=== PATIENT | male | born 1945 | race Caucasian/White ===

== ENCOUNTER 2018-09-27 23:44 | Inpatient (IN) | payer MEDICARE, MEDICAID ==
[~2018-09-27] VITALS: Ht 172.7 cm; Wt 131.1 kg
[2018-09-28] MEDS ORDERED: [UNRECOGNIZED DRUG - OTHER] (00:03)
[2018-09-28] MEDS ORDERED: CLONIDINE HCL 0.1 MG (00:03)
[2018-09-28] MEDS ORDERED: NEURONTIN 300 MG (00:03)
[2018-09-28] MEDS ORDERED: PRAVASTATIN 40 MG (00:03)
[2018-09-28] MEDS ORDERED: NOVOLOG U INSULIN (00:03)
[2018-09-28] MEDS ORDERED: CARVEDILOL 12.5 MG (00:03)
[2018-09-28] MEDS ORDERED: FERROUS SULFATE (00:03)
[2018-09-28] MEDS ORDERED: DEXAMETHASONE 1 MG (00:03)
[2018-09-28] MEDS ORDERED: COZAAR 100 MG (00:03)
[2018-09-28] MEDS ORDERED: [UNRECOGNIZED DRUG - OTHER] (00:03)
[2018-09-28] MEDS ORDERED: PLAVIX 75 MG (00:03)
[2018-09-28] MEDS ORDERED: PANTOPRAZOLE 40 MG (00:03)
[2018-09-28] MEDS ORDERED: CLOTRIMAZOLE-BETAMETHASONE CRM (00:03)
[2018-09-28] MEDS ORDERED: OXYBUTYNIN CL ER 10 MG TABLET (00:03)
[2018-09-28] MEDS ORDERED: TERAZOSIN 10 MG (00:03)
[2018-09-28] MEDS ORDERED: FARXIGA 5 MG (00:03)
[2018-09-28] MEDS ORDERED: LIRAGLUTIDE (00:03)
[2018-09-28] MEDS ORDERED: FUROSEMIDE 20 MG (00:04)
[2018-09-28] MEDS ORDERED: [UNRECOGNIZED DRUG - OTHER] (00:04)
[2018-09-28] MEDS ORDERED: LOSARTAN POTASSIUM 100 MG TAB (00:04)
[2018-09-28] MEDS ORDERED: INSULIN GLARGINE (00:04)
--- NOTE | 2018-09-28 00:07 | NUR ---
Patient BIB [id number] via [employer]. AAOx4. Speech is clear, speaks in complete sentences. No neuro deficits noted. Patient came in with c/o episodal general weakness at [id number]. No respiratory distress noted. No cardiovascular distress noted, all pulses palpable. No GI/. Patient in bed at lowest position, side rails upx2, call light within reach. Fall precautions implemented per protocol.
[2018-09-28 00:50] LABS: *BILIRUBIN,URIN NEGATIVE (NEGATIVE); *BLOOD, URINE 3+ (NEGATIVE); *CLARITY,URINE CLOUDY (CLEAR); *COLOR,URINE AMBER (YELLOW); *KETONES,URINE NEGATIVE (NEGATIVE); *UROBILINOGEN,URINE 0.2 E.U./dl (NORMAL); LEUKOCYTE ESTERASE ,URINE 1+ (NEGATIVE); NITRITE, URINE NEGATIVE (NEGATIVE); PH,URINE 5.5 (5.0-8.0); UGLUCOSE NEGATIVE (NEGATIVE)
[2018-09-28 00:58] LABS: BACTERIA,URINE MANY /HPF (NONE SEEN); RBC,URINE TNTC /HPF (0-3); SQUAMOUS EPITHELIAL CELL,UR FEW /HPF (NONE SEEN); WBC,URINE TNTC /HPF (0-3)
[2018-09-28 01:06] LABS: BASOPHILS # (AUTO) 0.2 K/uL (0.0-8.0); BASOPHILS % (AUTO) 0.9 % (0.0-2.0); EOSINOPHILS % (AUTO) 0.2 % (0.0-7.0); HEMATOCRIT 36.4 % (36.7-47.1); HEMOGLOBIN 12.1 g/dL (12.5-16.3); LYMPHOCYTES # (AUTO) 1.3 K/uL (20.0-40.0); LYMPHOCYTES % (AUTO) 6.9 % (20.5-51.5); MEAN CORPUSCULAR HEMOGLOBIN 27.9 uug (23.8-33.4); MEAN CORPUSCULAR HGB CONC 33 g/dL (32.5-36.3); MEAN CORPUSCULAR VOLUME 83.7 fL (73.0-96.2); MONOCYTES # (AUTO) 1.8 K/uL (2.0-10.0); MONOCYTES % (AUTO) 9.8 % (0.0-11.0); NEUTROPHILS # (AUTO) 15.5 K/uL (1.8-8.9); NEUTROPHILS % (AUTO) 82.2 % (38.5-71.5); PLATELET COUNT (AUTO) 217 K/uL (152-348); RED BLOOD CELL COUNT(AUTO) 4.35 MIL/uL (4.06-5.63); WHITE BLOOD COUNT (AUTO) 18.9 K/uL (3.6-10.2)
[2018-09-28 01:17] LABS: CARBON DIOXIDE 25 mmol/L (21-32); CHLORIDE 98 mmol/L (98-107); CREATININE 2.3 mg/dL (0.6-1.3); GLUCOSE 111 mg/dL (74-106); POTASSIUM 4.5 mmol/L (3.5-5.1); UREA NITROGEN, BLOOD 32 mg/dL (7-18)
[2018-09-28 01:24] LABS: ALANINE AMINOTRANSFERASE 15 U/L (16-63); ALKALINE PHOSPHATASE 43 U/L (50-136); ASPARTATE AMINOTRANSFERASE 13 U/L (15-37); BILIRUBIN,DIRECT 0.3 mg/dL (0.0-0.2); TOTAL PROTEIN, SERUM 7.1 g/dL (6.4-8.2)
[2018-09-28] MEDS ORDERED: CEFTRIAXONE 2 G in IV DEXTROSE 5% 100 ML IV ONE (01:30)
[2018-09-28] MEDS ORDERED: CEFTRIAXONE 1 G VIAL ONE (01:35)
--- NOTE | 2018-09-28 03:05 | NUR ---
Called [facility] for panel call, Dr. Combs on the phone w/ Dr. Joseph, called for med/surg bed - pt. to go into room 318
--- NOTE | 2018-09-28 03:07 | NUR ---
Pt. to go in to room 302
--- NOTE | 2018-09-28 03:07 | NUR ---
Daughter - Jennifer left phone number to be called if needed [phone]
--- NOTE | 2018-09-28 03:11 | NUR ---
ERROR charting RHAND 20G for ROCEPHIN; CORRECTION = LHAND 20G IV for Rocephin
[2018-09-28 03:14] LABS: LYMPHOCYTES % (MANUAL) 3 % (20-40); MONOCYTES % (MANUAL) 9 % (2-10); NEUTROPHILS % (MANUAL) 85 % (42-75)
[2018-09-28] MEDS ORDERED: IV NORMAL SALINE 1000 ML BAG IV ONE (03:15)
[2018-09-28] MEDS ORDERED: MAGNESIUM HYDROXIDE 30 ML LIQUID UDC PO PRN (03:45)
[2018-09-28] MEDS ORDERED: HYDROCODONE/APAP 5-325MG TABLET PO PRN (03:45)
[2018-09-28] MEDS ORDERED: ONDANSETRON 4 MG/2 ML VIAL IV PRN (03:45)
[2018-09-28] MEDS ORDERED: Z GUARD REMEDY PASTE 57 GM TUBE TOP PRN (03:45)
[2018-09-28] MEDS ORDERED: ACETAMINOPHEN 325 MG TABLET PO PRN (03:45)
[2018-09-28 05:00] VITALS: BP 128/63
--- NOTE | 2018-09-28 05:05 | NUR ---
Patient transfered to [facility] in stable condition.
[2018-09-28] MEDS: IV NS 1000 ML 1,000 ML IV PRN ×2 (05:10→19:50)
--- NOTE | 2018-09-28 05:10 | NUR ---
SBAR RECEIVED FROM ER NURSE. PATIENT ALERT AND ORIENTED X4. FARSI SPEAKING PRIMARILY, BUT SPEAKS QATARI WELL. NO C/O PAIN OR SOB AT THIS TIME. AT BEDSIDE. SIDERAILS UPP BILATERALLY. WILL CONTINUE TO MONITOR.
--- NOTE | 2018-09-28 06:44 | NUR ---
PATIENT RESTING COMFORTABLY IN BED. NO C/O PAIN AT THIS TIME. UP TO BATHROOM WITH ASSISTANCE. WILL ENDORSE TO ONCOMING SHIFT ACCORDINGLY.
[2018-09-28 07:54] LABS: BASOPHILS # (AUTO) 0.1 K/uL (0.0-8.0); BASOPHILS % (AUTO) 0.5 % (0.0-2.0); EOSINOPHILS % (AUTO) 0.3 % (0.0-7.0); HEMOGLOBIN 11.9 g/dL (12.5-16.3); LYMPHOCYTES # (AUTO) 1.5 K/uL (20.0-40.0); LYMPHOCYTES % (AUTO) 8.7 % (20.5-51.5); MEAN CORPUSCULAR HEMOGLOBIN 28.5 uug (23.8-33.4); MEAN CORPUSCULAR HGB CONC 34 g/dL (32.5-36.3); MONOCYTES % (AUTO) 11.7 % (0.0-11.0); NEUTROPHILS # (AUTO) 13.5 K/uL (1.8-8.9); NEUTROPHILS % (AUTO) 78.8 % (38.5-71.5); PLATELET COUNT (AUTO) 207 K/uL (152-348); RED BLOOD CELL COUNT(AUTO) 4.16 MIL/uL (4.06-5.63); WHITE BLOOD COUNT (AUTO) 17.1 K/uL (3.6-10.2)
[2018-09-28 08:12] LABS: CARBON DIOXIDE 26 mmol/L (21-32); CHLORIDE 100 mmol/L (98-107); CHOLESTEROL 87 mg/dL (<200); CREATININE 2.1 mg/dL (0.6-1.3); GLUCOSE 118 mg/dL (74-106); HDL CHOLESTEROL 32 mg/dL (40-60); MAGNESIUM 2.2 mg/dL (1.8-2.4); PHOSPHOROUS 3.1 mg/dL (2.5-4.9); TRIGLYCERIDES 62 MG/DL (30-150); UREA NITROGEN, BLOOD 32 mg/dL (7-18)
[2018-09-28] MEDS ORDERED: DEXTROSE 50% 50 ML DISP.SYRIN IV PRN (09:00)
[2018-09-28] MEDS: BLOOD SUGAR DIAGNOSTIC 1 EACH STRIP VI SCH ×4 (09:00→21:07)
[2018-09-28] MEDS ORDERED: CARV6.25 PO (10:51)
[2018-09-28] MEDS ORDERED: CLON0.2T PO (10:52)
[2018-09-28] MEDS ORDERED: LOSA100T3 PO (10:53)
[2018-09-28] MEDS ORDERED: CLOT15CR4 TP (10:53)
[2018-09-28] MEDS ORDERED: FURO40TA5 PO (10:54)
[2018-09-28] MEDS ORDERED: FAMO20TA8 PO (10:55)
[2018-09-28] MEDS ORDERED: GABA-534 PO (10:55)
[2018-09-28] MEDS ORDERED: INSU100V11 (10:57)
[2018-09-28] MEDS ORDERED: CLOP75TA15 PO (10:58)
[2018-09-28] MEDS ORDERED: PRAV40TA3 PO (10:58)
[2018-09-28] MEDS ORDERED: TERA2CAP4 PO (10:59)
[2018-09-28] MEDS ORDERED: INSU300I SQ ×2 (11:00→11:01)
[2018-09-28] MEDS ORDERED: LIRA0.6P2 SQ (11:02)
[2018-09-28] MEDS: INSULIN REGULAR, HUMAN 300 UNIT/3 ML VIAL SQ PRN ×2 (11:09→16:10)
[2018-09-28 11:26] VITALS: BP 122/61
[2018-09-28 14:42] LABS: *BILIRUBIN,URIN NEGATIVE (NEGATIVE); *BLOOD, URINE 2+ (NEGATIVE); *COLOR,URINE YELLOW (YELLOW); *KETONES,URINE NEGATIVE (NEGATIVE); *UROBILINOGEN,URINE 0.2 E.U./dl (NORMAL); LEUKOCYTE ESTERASE ,URINE TRACE (NEGATIVE); NITRITE, URINE NEGATIVE (NEGATIVE); UGLUCOSE TRACE (NEGATIVE)
[2018-09-28 14:44] LABS: *CREATININE,URINE 82.7 mg/dL (30-125); *URINE TOTAL PROTEIN RANDOM 97.9 mg/dL (<150/24HR)
[2018-09-28 15:32] VITALS: BP 135/54
[2018-09-28 16:56] LABS: *CLARITY,URINE HAZY (CLEAR)
[2018-09-28 16:58] LABS: RBC,URINE 20-50 /HPF (0-3); WBC,URINE 20-50 /HPF (0-3)
[2018-09-28 16:59] LABS: MUCUS,URINE FEW /LPF (0-FEW); SQUAMOUS EPITHELIAL CELL,UR FEW /HPF (NONE SEEN)
[2018-09-28] MEDS: CARVEDILOL 6.25 MG TABLET PO SCH (17:08)
--- NOTE | 2018-09-28 19:30 | NUR ---
Received pt in bed, AAO x 4 with family member at bedside, watching television. No acute distress noted. Verbally responsive and able to make needs known. Denies pain or discomfort at this time. Continuing IVF NS @ 75 cc/hr on L FA #20g. No s/s infiltration noted. All safety measures and fall precautions maintained. Call light within reach. All personal belongings within reach. New order for bladder scan q 8 hrs, straight cath PRN if PVR > 300 ml. Pt aware and verbalized understanding. Will continue to monitor.
[2018-09-28 20:00] VITALS: BP 145/68
[2018-09-28] MEDS: TERAZOSIN 5 MG CAPSULE PO SCH (21:06)
[2018-09-28] MEDS: GABAPENTIN 300 MG CAPSULE PO SCH (21:06)
[2018-09-28] MEDS: DOXYCYCLINE HYCLATE 100 MG TABLET PO SCH (21:07)
[2018-09-28] MEDS: INSULIN REGULAR, HUMAN 300 UNITS/3 ML VIAL SQ PRN (21:09)
[2018-09-28] MEDS: INSULIN GLARGINE,HUM 300 UNITS/3 ML CARTRIDGE SQ SCH (21:10)
--- NOTE | 2018-09-28 21:22 | NUR ---
Bladder scan done with no residual noted. Safety maintained. Call light within reach. Will continue to monitor.
[2018-09-28] MEDS: CLONIDINE HCL 0.2 MG TABLET PO SCH (21:50)
--- NOTE | 2018-09-28 21:50 | NUR ---
New order for MRSA swab bilateral nares. Swab collected and sent to lab.
[2018-09-29] MEDS: CEFTRIAXONE 1 G in IV DEXTROSE 5% 50 ML IV SCH ×2 (01:07→21:04)
[2018-09-29 04:00] VITALS: BP 142/64
[2018-09-29 06:43] LABS: BASOPHILS # (AUTO) 0.1 K/uL (0.0-8.0); BASOPHILS % (AUTO) 0.4 % (0.0-2.0); EOSINOPHILS # (AUTO) 0.3 K/uL (0.0-0.7); EOSINOPHILS % (AUTO) 1.8 % (0.0-7.0); HEMATOCRIT 36.4 % (36.7-47.1); HEMOGLOBIN 12.1 g/dL (12.5-16.3); LYMPHOCYTES # (AUTO) 1.7 K/uL (20.0-40.0); LYMPHOCYTES % (AUTO) 12.3 % (20.5-51.5); MEAN CORPUSCULAR HEMOGLOBIN 28.3 uug (23.8-33.4); MEAN CORPUSCULAR HGB CONC 33 g/dL (32.5-36.3); MEAN CORPUSCULAR VOLUME 84.9 fL (73.0-96.2); MONOCYTES # (AUTO) 1.3 K/uL (2.0-10.0); MONOCYTES % (AUTO) 9.7 % (0.0-11.0); NEUTROPHILS # (AUTO) 10.5 K/uL (1.8-8.9); NEUTROPHILS % (AUTO) 75.8 % (38.5-71.5); PLATELET COUNT (AUTO) 204 K/uL (152-348); RED BLOOD CELL COUNT(AUTO) 4.29 MIL/uL (4.06-5.63); WHITE BLOOD COUNT (AUTO) 13.9 K/uL (3.6-10.2)
[2018-09-29] MEDS: BLOOD SUGAR DIAGNOSTIC 1 EACH STRIP VI SCH ×4 (06:45→20:50)
--- NOTE | 2018-09-29 06:52 | NUR ---
Pt slept comfortably throughout shift. No acute distress noted. No complaints of pain. Kept clean and dry, good pericare rendered. Continuing IVF NS @ 75 cc/hr on LFA. No s/s infiltration noted. All due medications given as ordered and tolerated well. Safety maintained. Call light and all personal belongings within reach. Will endorse accordingly to oncoming shift.
[2018-09-29 07:00] LABS: ALANINE AMINOTRANSFERASE 15 U/L (16-63); ALKALINE PHOSPHATASE 49 U/L (50-136); ASPARTATE AMINOTRANSFERASE 21 U/L (15-37); BILIRUBIN,TOTAL 0.6 mg/dL (0.2-1.0); CARBON DIOXIDE 26 mmol/L (21-32); CHLORIDE 101 mmol/L (98-107); CREATININE 1.9 mg/dL (0.6-1.3); GLUCOSE 158 mg/dL (74-106); MAGNESIUM 2.3 mg/dL (1.8-2.4); PHOSPHOROUS 3.6 mg/dL (2.5-4.9); POTASSIUM 4.4 mmol/L (3.5-5.1); TOTAL PROTEIN, SERUM 6.9 g/dL (6.4-8.2); UREA NITROGEN, BLOOD 27 mg/dL (7-18)
[2018-09-29] MEDS: INSULIN REGULAR, HUMAN 300 UNIT/3 ML VIAL SQ PRN ×3 (07:25→16:26)
[2018-09-29] MEDS: CLONIDINE HCL 0.2 MG TABLET PO SCH ×2 (08:00→21:00)
[2018-09-29] MEDS: CLOPIDOGREL 75 MG TABLET PO SCH (08:00)
[2018-09-29] MEDS: DOXYCYCLINE HYCLATE 100 MG TABLET PO SCH ×2 (08:00→21:41)
[2018-09-29] MEDS: CARVEDILOL 6.25 MG TABLET PO SCH ×2 (08:00→17:13)
[2018-09-29] MEDS: LOSARTAN POTASSIUM 50 MG TABLET PO SCH (08:00)
[2018-09-29] MEDS: FUROSEMIDE 40 MG TABLET PO SCH (08:00)
[2018-09-29] MEDS: CLOTRIMAZOLE/BETAMET DIPROP CREAM 15 GM TUBE TP SCH (08:01)
[2018-09-29] MEDS: IV NS 1000 ML 1,000 ML IV PRN ×2 (08:40→21:38)
[2018-09-29 11:19] VITALS: BP 134/63
[2018-09-29 15:51] VITALS: BP 119/56
--- NOTE | 2018-09-29 20:00 | NUR ---
PATIENT AWAKE NO COMPLAIN OF PAIN, NO SOB NO CHEST PAIN. PATIENT VOIDING FREELY IN [place]. PATIENT HAS NO COMPLAIN ABDOMINAL PAIN AT THIS TIME. CALL LIGHT WITHIN REACH.
[2018-09-29 20:31] VITALS: BP 139/59
[2018-09-29] MEDS: TERAZOSIN 5 MG CAPSULE PO SCH (20:49)
[2018-09-29] MEDS: GABAPENTIN 300 MG CAPSULE PO SCH (20:49)
[2018-09-29] MEDS: INSULIN GLARGINE,HUM 300 UNITS/3 ML CARTRIDGE SQ SCH (20:57)
[2018-09-29] MEDS: INSULIN REGULAR, HUMAN 300 UNITS/3 ML VIAL SQ PRN (21:00)
[2018-09-30 06:03] VITALS: BP 142/64
[2018-09-30] MEDS: BLOOD SUGAR DIAGNOSTIC 1 EACH STRIP VI SCH ×3 (06:06→17:17)
[2018-09-30 06:12] LABS: BASOPHILS # (AUTO) 0.1 K/uL (0.0-8.0); BASOPHILS % (AUTO) 0.8 % (0.0-2.0); EOSINOPHILS # (AUTO) 0.5 K/uL (0.0-0.7); EOSINOPHILS % (AUTO) 3.5 % (0.0-7.0); HEMATOCRIT 35.5 % (36.7-47.1); LYMPHOCYTES # (AUTO) 1.3 K/uL (20.0-40.0); LYMPHOCYTES % (AUTO) 10.3 % (20.5-51.5); MEAN CORPUSCULAR HEMOGLOBIN 28.5 uug (23.8-33.4); MEAN CORPUSCULAR HGB CONC 34 g/dL (32.5-36.3); MONOCYTES # (AUTO) 1.4 K/uL (2.0-10.0); MONOCYTES % (AUTO) 11.2 % (0.0-11.0); NEUTROPHILS # (AUTO) 9.6 K/uL (1.8-8.9); NEUTROPHILS % (AUTO) 74.2 % (38.5-71.5); PLATELET COUNT (AUTO) 210 K/uL (152-348); RED BLOOD CELL COUNT(AUTO) 4.23 MIL/uL (4.06-5.63); WHITE BLOOD COUNT (AUTO) 12.9 K/uL (3.6-10.2)
[2018-09-30 06:19] LABS: CARBON DIOXIDE 23 mmol/L (21-32); CHLORIDE 101 mmol/L (98-107); CREATININE 1.9 mg/dL (0.6-1.3); GLUCOSE 182 mg/dL (74-106); POTASSIUM 4.3 mmol/L (3.5-5.1); UREA NITROGEN, BLOOD 28 mg/dL (7-18)
--- NOTE | 2018-09-30 06:55 | NUR ---
PATIENT SLEPT MOST OF THE NIGHT NO SOB NO CHEST PAIN. PATIENT VOIDING FREELY, NO COMPLAIN OF PAIN. CONT TO MONITOR.
[2018-09-30] MEDS: INSULIN REGULAR, HUMAN 300 UNIT/3 ML VIAL SQ PRN ×3 (08:22→17:22)
[2018-09-30] MEDS: DOXYCYCLINE HYCLATE 100 MG TABLET PO SCH (08:25)
[2018-09-30] MEDS: CARVEDILOL 6.25 MG TABLET PO SCH ×2 (08:25→17:23)
[2018-09-30] MEDS: FUROSEMIDE 40 MG TABLET PO SCH (08:25)
[2018-09-30] MEDS: CLOPIDOGREL 75 MG TABLET PO SCH (08:25)
[2018-09-30] MEDS: LOSARTAN POTASSIUM 50 MG TABLET PO SCH (08:26)
[2018-09-30] MEDS: CLONIDINE HCL 0.2 MG TABLET PO SCH (08:26)
[2018-09-30] MEDS: CLOTRIMAZOLE/BETAMET DIPROP CREAM 15 GM TUBE TP SCH (08:26)
--- NOTE | 2018-09-30 08:30 | NUR ---
RECEIVED PATIENT AWAKE ALERT AND ORIENTED TOLERATED DIET ORDERED INSULIN PER SLIDING SCALE GIVEN WITH NO S/S OF HYPO/HYPERGLYCEMIC REACTIONS AT THIS TIME MADE COMFORTABLE WITH ALL OF HIS PERSONAL BELONGINGS AND CALL LIGHTES PLACED WITHIN EASY REACH.WILL CONTINUE TO OBSERVE.
--- NOTE | 2018-09-30 10:56 | NUR ---
PATIENT REFUSED TO HAVE A NEW BAG OF IVF RESTARTED STATED THAT HE WAS TOLD THAT HE IS GOING HOME TODAY AND THAT HE DRINKS LOTS OF WATER SO DOES NOT NEED IVF AT THIS TIME.BRAKE LINING MAKER ANTOLIN OCONNOR STATED PATIENT WILL BE DISCHARGED TODAY.
--- NOTE | 2018-09-30 10:57 | NUR ---
PER THE VP CARDIOVASCULAR SERVICE LINE LIBRARIAN PATIENT WILL BE DISCHARGED TODAY AWAITING FOR THE DOCTORS ORDERS PATIENT REFUSED TO HAVE HIS IVF REPLACED AT THIS TIME.
[2018-09-30 11:57] VITALS: BP 133/69
--- NOTE | 2018-09-30 15:26 | NUR ---
C/O HAS BODY ACHES AND HIS TEMP IS 99.8 ORAL MEDICATED WITH TYLENOL PATIENT [facility] AND WILL DISCHARGE HIM TODAY AWAITING FOR ORDERS.
--- NOTE | 2018-09-30 15:40 | NUR ---
PASCHUAL FUR FINISHER AWARE OF LOW GRADE FEVER STATED THAT PATIENT WILL BE DISCHARGED TODAY ON ANTIBIOTICS STATED THAT THE ID HAS CLEARED PATIENT FOR DISCHARGE.
--- NOTE | 2018-09-30 15:45 | NUR ---
DISCHARGE ORDER NOTED AND PATIENT STATED THAT HIS BRIAN WILL BE HERE ABOUT 1800 TO PICK HIM UP.DISCHARGE INSTRUCTIONS AND PRESCRIPTION GIVEN TO PATIENT AND HE WAS INSTRUCTED TO CONTINUE MEDICATIONS ORDERED AND TO CALL HIS PRIMARY DOCTOR FOR A FOLLOW UP APPOINTMENT WITHIN THE NEXT ONE WEEK AND HE EXPRESSED UNDERSTANDING.
[2018-09-30 16:16] VITALS: BP_SYST 145; BP_SYST 61; BP_DIAS 61
[2018-09-30 17:23] VITALS: BP 145/61
--- NOTE | 2018-09-30 18:25 | NUR ---
PATIENT DISCHARGED WHEELED DOWN BY W/CHAIR TO THE FRONT LOBBY AND PICKED UP BY HIS BRIAN WITH ALL OF HIS PERSONAL BELONGINGS.
== END 2018-09-30 18:19 | disposition home or self-care (01) | DRG 871 ==
LOC: ER 23:44 → MEDSURG3 09-28 04:29
PROVIDERS: ADMIT Nurse Practitioner Acute Care; ATTEND Nurse Practitioner Acute Care
DX: A41.59 Other Gram-negative sepsis (principal); N17.0 Acute kidney failure with tubular necrosis; N39.0 Urinary tract infection, site not specified; Z68.41 Body mass index [BMI] 40.0-44.9, adult; E44.0 Moderate protein-calorie malnutrition; E87.1 Hypo-osmolality and hyponatremia; L03.116 Cellulitis of left lower limb; L03.115 Cellulitis of right lower limb; I13.0 Hypertensive heart and chronic kidney disease with heart failure and stage 1 through stage 4 chronic kidney disease, or unspecified chronic kidney disease; R65.20 Severe sepsis without septic shock; B96.89 Other specified bacterial agents as the cause of diseases classified elsewhere; Z16.11 Resistance to penicillins; E11.22 Type 2 diabetes mellitus with diabetic chronic kidney disease; N18.9 Chronic kidney disease, unspecified; Z79.4 Long term (current) use of insulin; E11.51 Type 2 diabetes mellitus with diabetic peripheral angiopathy without gangrene; E11.42 Type 2 diabetes mellitus with diabetic polyneuropathy; E11.65 Type 2 diabetes mellitus with hyperglycemia; E66.01 Morbid (severe) obesity due to excess calories; Z71.3 Dietary counseling and surveillance; I45.10 Unspecified right bundle-branch block; I25.10 Atherosclerotic heart disease of native coronary artery without angina pectoris; E78.5 Hyperlipidemia, unspecified; N40.1 Benign prostatic hyperplasia with lower urinary tract symptoms; R33.8 Other retention of urine; D63.8 Anemia in other chronic diseases classified elsewhere; M89.9 Disorder of bone, unspecified; I87.8 Other specified disorders of veins; I50.9 Heart failure, unspecified; Z91.81 History of falling
CPT/HCPCS: 36415; 70030-TC; 71045; 76775; 83605; 83735; 84100; 84156; 84300; 85025; 87040; 87077; 87086; 93005; 97110; 97116; 97530; A4663; G0378; J0696; J1815; J7030; J7040; J7060

== ENCOUNTER 2018-12-21 20:07 | Inpatient (IN) | payer MEDICARE, MEDICAID ==
[~2018-12-21] VITALS: Ht 167.6 cm; Wt 133.8 kg
[~2018-12-21 20:07] MED LIST: CARV6.25 PO; CLON0.2T PO; CLOP75TA15 PO; CLOT15CR4 TP; FAMO20TA8 PO; FERROUS SULFATE; FURO40TA5 PO; GABA-534 PO; INSU100V11 SQ; INSU300I SQ; LIRA0.6P2 SQ; LOSA100T3 PO; PRAV40TA3 PO; TERA2CAP4 PO
--- NOTE | 2018-12-21 20:18 | NUR ---
Pt comes to ER via wheelchair accompanied by with c/o fever x 3 days. Pt saw his PCP & was told to be admitted to hospital for his diabetic ulcer under right leg. Pt is awake, alert, oriented x 4. Needs assistance ambulating. Pt placed on cardiac sonographer. Pending MD orders.
[2018-12-21] MEDS ORDERED: IV NORMAL SALINE 1000 ML BAG IV ONE (20:30)
[2018-12-21] MEDS ORDERED: ACETAMINOPHEN 325 MG TABLET PO ONE (20:30)
[2018-12-21] MEDS ORDERED: ACETAMINOPHEN ES 500 MG TABLET ONE (21:10)
[2018-12-21] MEDS ORDERED: CHOL500050 PO (21:11)
[2018-12-21] MEDS ORDERED: OXYB5TAB29 PO (21:11)
[2018-12-21] MEDS ORDERED: AMLO10TA7 PO (21:11)
[2018-12-21] MEDS ORDERED: CARV12.52 PO (21:11)
[2018-12-21 21:14] LABS: CARBON DIOXIDE 26 mmol/L (21-32); CHLORIDE 99 mmol/L (98-107); CREATININE 2.5 mg/dL (0.6-1.3); GLUCOSE 97 mg/dL (74-106); POTASSIUM 4.6 mmol/L (3.5-5.1); UREA NITROGEN, BLOOD 48 mg/dL (7-18)
[2018-12-21 21:15] LABS: BASOPHILS # (AUTO) 0.1 K/uL (0.0-8.0); BASOPHILS % (AUTO) 0.9 % (0.0-2.0); EOSINOPHILS % (AUTO) 0.3 % (0.0-7.0); HEMATOCRIT 33.1 % (36.7-47.1); HEMOGLOBIN 11.3 g/dL (12.5-16.3); LYMPHOCYTES # (AUTO) 1.1 K/uL (20.0-40.0); LYMPHOCYTES % (AUTO) 13.8 % (20.5-51.5); MEAN CORPUSCULAR HEMOGLOBIN 28.5 uug (23.8-33.4); MEAN CORPUSCULAR HGB CONC 34 g/dL (32.5-36.3); MEAN CORPUSCULAR VOLUME 83.5 fL (73.0-96.2); MONOCYTES # (AUTO) 1.5 K/uL (2.0-10.0); MONOCYTES % (AUTO) 19.3 % (0.0-11.0); NEUTROPHILS # (AUTO) 5.1 K/uL (1.8-8.9); NEUTROPHILS % (AUTO) 65.7 % (38.5-71.5); PLATELET COUNT (AUTO) 186 K/uL (152-348); RED BLOOD CELL COUNT(AUTO) 3.96 MIL/uL (4.06-5.63); WHITE BLOOD COUNT (AUTO) 7.7 K/uL (3.6-10.2)
[2018-12-21 21:20] LABS: ALANINE AMINOTRANSFERASE 44 U/L (16-63); ALKALINE PHOSPHATASE 39 U/L (50-136); ASPARTATE AMINOTRANSFERASE 70 U/L (15-37); BILIRUBIN,DIRECT 0.2 mg/dL (0.0-0.2); BILIRUBIN,TOTAL 0.7 mg/dL (0.2-1.0); LIPASE 209 U/L (73-393)
[2018-12-21 21:28] LABS: *BILIRUBIN,URIN NEGATIVE (NEGATIVE); *BLOOD, URINE 2+ (NEGATIVE); *CLARITY,URINE CLEAR (CLEAR); *COLOR,URINE YELLOW (YELLOW); *KETONES,URINE NEGATIVE (NEGATIVE); *UROBILINOGEN,URINE 0.2 E.U./dl (NORMAL); LEUKOCYTE ESTERASE ,URINE NEGATIVE (NEGATIVE); NITRITE, URINE NEGATIVE (NEGATIVE); UGLUCOSE NEGATIVE (NEGATIVE)
[2018-12-21] MEDS ORDERED: VANCOMYCIN IV 1,000 MG in IV DEXTROSE 5% 250 ML IV ONE (21:30)
[2018-12-21 21:32] LABS: COARSE GRANULAR CASTS,URINE 0-3 /LPF; MUCUS,URINE MODERATE /LPF (0-FEW); SQUAMOUS EPITHELIAL CELL,UR FEW /HPF (NONE SEEN); URINE AMORPHOUS URATE FEW /HPF; WBC,URINE 0-3 /HPF (0-3)
[2018-12-21] MEDS ORDERED: VANCOMYCIN IV 200 ML ONE (21:33)
[2018-12-21 21:39] LABS: BAND % (MANUAL) 6 % (0-10); LYMPHOCYTES % (MANUAL) 16 % (20-40); MONOCYTES % (MANUAL) 20 % (2-10); NEUTROPHILS % (MANUAL) 58 % (42-75)
[2018-12-21] MEDS ORDERED: ONDANSETRON 4 MG/2 ML VIAL IV PRN (21:45)
[2018-12-21] MEDS ORDERED: DEXTROSE 50% 50 ML DISP.SYRIN IV PRN (21:45)
[2018-12-21] MEDS ORDERED: IV NS 1000 ML 1,000 ML IV PRN (21:45)
--- NOTE | 2018-12-21 21:49 | NUR ---
Pt. admitted to Telemetry, under care of Becky Douglas NP. Diagnosis: Right Leg Cellulitis. Belongs List completed
--- NOTE | 2018-12-21 22:30 | NUR ---
ADMITTED PATIENT IN TELE FLOOR UNDER THE CARE OF CEDRICK HAWKINS PHARMACEUTICAL PHYSICIAN, BELONG LIST DONE. PATIENT ALERT ORIENTED, NO SOB NO CHEST PAIN, SINUS RHYTHM AT THIS TIME. PATIENT HAS CELLULITIS OF R LOWER EXTREMITY, AND BILATERAL SWELLING OF BOTH LOWER EXTREMITY. CONT TO MONITOR.
[2018-12-21 22:35] VITALS: BP 125/52
[2018-12-22] MEDS: ACETAMINOPHEN 325 MG TABLET PO PRN ×3 (01:24→18:59)
[2018-12-22 01:33] VITALS: BP 108/83
[2018-12-22] MEDS ORDERED: ALBUTEROL SULFATE 1.25 MG/3 ML NEBU NEB PRN (01:45)
--- NOTE | 2018-12-22 01:49 | NUR ---
PATIENT HAS DIFFICULTY BREADING, KEPT HOB ELEVATED, GIVEN OXYGEN 6LPM SAT 92 TO 95%, PATIENT DENIES HAVING COPD OR ASTHMA, PATIENT ALSO HAVE TEMP 102.1, GIVEN COOLING MEASURES AND TYLENOL. NOTIFY CONNER NIX REGARDING PATIENT CONDITION WITH ORDER OF ALBUTEROL HHN AND XANAX FOR ANXIETY. CONT TO MONITOR.
--- NOTE | 2018-12-22 02:20 | NUR ---
PATIENT OXYGEN LOWER DOWN TO 3LPM NC SAT 95 TO 97%, PATIENT BREATHING BETTER, CONT ON COOLING MEASURES FOR ELEVATED TEMP. NO S/S OF DISTRESS. CONT TO MONITOR.
--- NOTE | 2018-12-22 03:45 | NUR ---
PATIENT HAS PERSISTENT ELEVATED TEMP OF 103 ORAL DESPITE TYLENOL AND COOLING MEASURES, NOTIFY DEMETRIUS NIX WITH NO FURTHER ORDER AT THIS TIME. CONTINUE COOLING MEASURES. PATIENT ALERT ORIENTED, NO SOB NO CHEST PAIN, ASSISTED WITH URINATION USES URINAL. NO S/S OF DISTRESS. CONT TO MONITOR.
[2018-12-22 04:00] VITALS: BP 140/57
--- NOTE | 2018-12-22 04:00 | NUR ---
PATIENT CURRENT TEMP 99. ORAL, ALERT ORIENTED, CONTINUE COOLING MEASURES. NO S/S OF DISTRESS.
[2018-12-22] MEDS: BLOOD SUGAR DIAGNOSTIC 1 EACH STRIP VI SCH ×4 (05:57→20:34)
[2018-12-22] MEDS ORDERED: INSULIN GLARGINE,HUM 300 UNITS/3 ML CARTRIDGE SQ SCH (07:30)
[2018-12-22] MEDS: INSULIN REGULAR, HUMAN 300 UNIT/3 ML VIAL SQ PRN ×2 (08:00→12:01)
[2018-12-22] MEDS: FUROSEMIDE 40 MG TABLET PO SCH (08:28)
[2018-12-22] MEDS: ALPRAZOLAM 0.25 MG TABLET PO PRN (08:28)
[2018-12-22] MEDS: CLOPIDOGREL 75 MG TABLET PO SCH (08:28)
[2018-12-22] MEDS: CARVEDILOL 12.5 MG TABLET PO SCH ×2 (08:28→17:33)
[2018-12-22] MEDS: CLONIDINE HCL 0.2 MG TABLET PO SCH ×2 (08:29→21:00)
[2018-12-22] MEDS: AMLODIPINE 10 MG TABLET PO SCH (08:29)
[2018-12-22] MEDS ORDERED: PANTOPRAZOLE SODIUM 40 MG VIAL IV SCH (09:00)
[2018-12-22 09:39] LABS: BASOPHILS % (AUTO) 0.3 % (0.0-2.0); EOSINOPHILS % (AUTO) 0.3 % (0.0-7.0); HEMATOCRIT 31.8 % (36.7-47.1); HEMOGLOBIN 10.9 g/dL (12.5-16.3); LYMPHOCYTES # (AUTO) 0.3 K/uL (20.0-40.0); LYMPHOCYTES % (AUTO) 3.2 % (20.5-51.5); MEAN CORPUSCULAR HEMOGLOBIN 28.9 uug (23.8-33.4); MEAN CORPUSCULAR HGB CONC 34 g/dL (32.5-36.3); MEAN CORPUSCULAR VOLUME 84.3 fL (73.0-96.2); MONOCYTES # (AUTO) 0.5 K/uL (2.0-10.0); MONOCYTES % (AUTO) 5.9 % (0.0-11.0); NEUTROPHILS # (AUTO) 8.1 K/uL (1.8-8.9); NEUTROPHILS % (AUTO) 90.3 % (38.5-71.5); PLATELET COUNT (AUTO) 160 K/uL (152-348); RED BLOOD CELL COUNT(AUTO) 3.78 MIL/uL (4.06-5.63); WHITE BLOOD COUNT (AUTO) 8.9 K/uL (3.6-10.2)
[2018-12-22 09:40] LABS: CARBON DIOXIDE 22 mmol/L (21-32); CHLORIDE 101 mmol/L (98-107); CREATININE 2.7 mg/dL (0.6-1.3); POTASSIUM 4.5 mmol/L (3.5-5.1); UREA NITROGEN, BLOOD 51 mg/dL (7-18)
--- NOTE | 2018-12-22 09:43 | NUR ---
CALL RECEIVED FROM LAB GLUCOSE IS 304 PATIENT ALREADY HAD HIS BREAKFAST AND REGULAR INSULIN PER SLIDING SCALE ORDERED NO S/S OF HYPERGLYCEMIC REACTIONS AT THIS TIME WILL CONTINUE TO OBSERVE PATIENT AND CHECK HIS BLOOD SUGAR BEFORE LUNCH AND WILL THEN INTERVENE NEEDED.
[2018-12-22 09:46] LABS: GLUCOSE 304 mg/dL (74-106)
[2018-12-22 09:48] LABS: ALANINE AMINOTRANSFERASE 41 U/L (16-63); ALKALINE PHOSPHATASE 34 U/L (50-136); ASPARTATE AMINOTRANSFERASE 58 U/L (15-37); BILIRUBIN,TOTAL 0.6 mg/dL (0.1-1.0); CHOLESTEROL 82 mg/dL (<200); HDL CHOLESTEROL 17 mg/dL (40-60); MAGNESIUM 2.2 mg/dL (1.8-2.4); PHOSPHOROUS 3.4 mg/dL (2.5-4.9); TOTAL PROTEIN, SERUM 6.3 g/dL (6.4-8.2); TRIGLYCERIDES 113 MG/DL (30-150)
[2018-12-22 09:54] LABS: THYROID STIMULATING HORMONE 1.761 mIU/mL (0.358-3.740)
--- NOTE | 2018-12-22 11:00 | NUR ---
DR CARDOSO HERE AND I NOTIFIED HIM RE TROP LEVEL IS 0.006 TODAY AND HE SEEN AND EXAMINED PATIENT WITH NO NEW ORDERS AT THIS TIME.
[2018-12-22 11:40] VITALS: BP 122/48
[2018-12-22] MEDS: FAMOTIDINE. 20 MG/2 ML VIAL IV SCH (11:54)
[2018-12-22] MEDS: INSULIN GLARGINE,HUM 300 UNITS/3 ML CARTRIDGE SQ SCH ×2 (11:58→21:14)
--- NOTE | 2018-12-22 13:48 | NUR ---
DR OBED TYLER HERE TO SEE PATIENT WITH NEW ORDERS AND NOTED.
[2018-12-22 16:00] VITALS: BP 111/40
[2018-12-22] MEDS ORDERED: VANCOMYCIN IV 2,000 MG in IV DEXTROSE 5% 500 ML IV ONE (16:00)
[2018-12-22 16:28] LABS: *CREATININE,URINE 96.7 mg/dL (30-125)
--- NOTE | 2018-12-22 18:40 | NUR ---
VANCOMICIN COMPLETED ORDERED WITH NO ADVERSE OR ALLERGIC REACTIONS AT THIS TIME.
[2018-12-22] MEDS: LEVOFLOXACIN 250 MG TABLET PO SCH (21:10)
[2018-12-22] MEDS: ATORVASTATIN 10 MG TABLET PO SCH (21:11)
[2018-12-22] MEDS: OXYBUTYNIN XL 5 MG TABSR PO SCH (21:12)
[2018-12-22] MEDS: TERAZOSIN 5 MG CAPSULE PO SCH (21:12)
[2018-12-22] MEDS: LINEZOLID 600 MG TABLET PO SCH (21:12)
[2018-12-22 21:16] VITALS: BP 114/66
[2018-12-22] MEDS ORDERED: AZTREONAM 1 G in IV NORMAL SALINE 50 ML IV SCH (22:00)
[2018-12-22] MEDS ORDERED: AZTREONAM 1 G VIAL ONE (22:26)
[2018-12-23] VITALS: BP 109/52
[2018-12-23] MEDS: AZTREONAM 0.5 G in IV NORMAL SALINE 50 ML IV SCH ×3 (06:05→22:17)
[2018-12-23 06:14] VITALS: BP 122/46
[2018-12-23] MEDS: BLOOD SUGAR DIAGNOSTIC 1 EACH STRIP VI SCH ×4 (06:59→20:48)
--- NOTE | 2018-12-23 07:24 | NUR ---
RECEIVED PATIENT IN BED WITH IV ATB STILL INFUSING SECONDARY TO IV SITE WAS INFILTERATED AND A NEW SITE WAS INSERTED WITH NO ADVERSE OR ALLERGIC REACTIONS AT THIS TIME.PATIENT IS ALERT AND ORIENTED BUT FORGETFUL NEEDED FREQUENT REDIRECTIONS PATIENT FORGETS.BLE STILL RED AND SWOLLEN ENCOURAGED TO KEEP ELEVATED TO REDUCE SWELLING AND EXPRESSED UNDERSTANDING CALL LIGHTS AND PERSONAL BELONGINGS ARE WITHIN EASY REACH MADE COMFORTABLE AND WILL CONTINUE TO OBSERVE PATIENT.
[2018-12-23] MEDS: LINEZOLID 600 MG TABLET PO SCH ×2 (08:43→20:50)
[2018-12-23] MEDS: CLOPIDOGREL 75 MG TABLET PO SCH (08:43)
[2018-12-23] MEDS: FAMOTIDINE. 20 MG/2 ML VIAL IV SCH (08:43)
[2018-12-23] MEDS: CLONIDINE HCL 0.2 MG TABLET PO SCH ×2 (08:44→22:28)
[2018-12-23] MEDS: FUROSEMIDE 40 MG TABLET PO SCH (08:44)
[2018-12-23] MEDS: CARVEDILOL 12.5 MG TABLET PO SCH ×2 (08:45→17:13)
[2018-12-23] MEDS: AMLODIPINE 10 MG TABLET PO SCH (08:45)
[2018-12-23] MEDS: INSULIN GLARGINE,HUM 300 UNITS/3 ML CARTRIDGE SQ SCH ×2 (08:48→20:58)
--- NOTE | 2018-12-23 10:51 | NUR ---
ASSISTED UP ON THE CHAIR ATE BREAKFAST APPETITE WAS GOOD MADE COMFORTABLE AND WILL CONTINUE TO OBSERVE.
[2018-12-23 11:43] VITALS: BP 125/42
[2018-12-23] MEDS: INSULIN REGULAR, HUMAN 300 UNIT/3 ML VIAL SQ PRN ×3 (12:05→20:58)
--- NOTE | 2018-12-23 13:50 | NUR ---
WOUND CARE CONSULT: PT PRESENTS WITH LOWER LEG REDNESS AND SWELLING, PRESENT ON ADMISSION. RECOMMENDATIONS MADE FOR SKIN PROTECTION. DISCUSSED WITH NURSING STAFF. PT IS CONTINENT AT THIS TIME WITH CURRENT URMILA SCORE OF 20. WILL SEE PRN. Addendum: 12/23/18 at 1351 by STAS ANDERSON RN Amended: Links added.
[2018-12-23] MEDS ORDERED: Z GUARD REMEDY PASTE 57 GM TUBE TOP PRN (14:00)
[2018-12-23] MEDS: ALPRAZOLAM 0.25 MG TABLET PO PRN (14:09)
[2018-12-23 15:17] LABS: BASOPHILS % (AUTO) 0.3 % (0.0-2.0); EOSINOPHILS # (AUTO) 0.7 K/uL (0.0-0.7); EOSINOPHILS % (AUTO) 8.3 % (0.0-7.0); HEMOGLOBIN 10.6 g/dL (12.5-16.3); LYMPHOCYTES # (AUTO) 0.9 K/uL (20.0-40.0); LYMPHOCYTES % (AUTO) 10.8 % (20.5-51.5); MEAN CORPUSCULAR HEMOGLOBIN 28.4 uug (23.8-33.4); MEAN CORPUSCULAR HGB CONC 34 g/dL (32.5-36.3); MEAN CORPUSCULAR VOLUME 83.1 fL (73.0-96.2); MONOCYTES # (AUTO) 0.9 K/uL (2.0-10.0); MONOCYTES % (AUTO) 10.5 % (0.0-11.0); NEUTROPHILS # (AUTO) 5.9 K/uL (1.8-8.9); NEUTROPHILS % (AUTO) 70.1 % (38.5-71.5); PLATELET COUNT (AUTO) 173 K/uL (152-348); RED BLOOD CELL COUNT(AUTO) 3.73 MIL/uL (4.06-5.63); WHITE BLOOD COUNT (AUTO) 8.4 K/uL (3.6-10.2)
[2018-12-23 15:24] VITALS: BP 142/64
[2018-12-23 15:33] LABS: ALANINE AMINOTRANSFERASE 43 U/L (16-63); ALKALINE PHOSPHATASE 37 U/L (50-136); ASPARTATE AMINOTRANSFERASE 43 U/L (15-37); BILIRUBIN,TOTAL 0.7 mg/dL (0.2-1.0); CARBON DIOXIDE 24 mmol/L (21-32); CHLORIDE 99 mmol/L (98-107); CREATININE 2.6 mg/dL (0.6-1.3); GLUCOSE 188 mg/dL (74-106); MAGNESIUM 2.2 mg/dL (1.8-2.4); PHOSPHOROUS 3.1 mg/dL (2.5-4.9); POTASSIUM 4.4 mmol/L (3.5-5.1); TOTAL PROTEIN, SERUM 6.4 g/dL (6.4-8.2); UREA NITROGEN, BLOOD 51 mg/dL (7-18)
--- NOTE | 2018-12-23 16:43 | NUR ---
PATIENT IS SITTING UP ON THE CHAIR AT THIS TIME EATING FOOD BROUGHT IN BY FAMILY INSULIN GIVEN PER SLIDING SCALE ENCOURAGED TO KEEP HIS LEGS ELEVATED TO HELP FACILITATE DECREASE OF SWELLING AND HE EXPRESSED UNDERSTANDING.
--- NOTE | 2018-12-23 19:30 | NUR ---
PATIENT ALERT ORIENTED, NO SOB NO CHEST PAIN. PATIENT SAT 96% AT 2 LPM. CONT ABX FOR BILATERAL LEG CELLULITIS. PATIENT CONTINENT OF BOWEL AND BLADDER, USES URINAL FOR BLADDER ELIMINATIONS. RESPIRATION EVEN AND UNLABORED. CALL LIGHT WITHIN REACH.
[2018-12-23 20:11] VITALS: BP 134/59
[2018-12-23] MEDS: LEVOFLOXACIN 250 MG TABLET PO SCH (20:49)
[2018-12-23] MEDS: ATORVASTATIN 10 MG TABLET PO SCH (20:49)
[2018-12-23] MEDS: TERAZOSIN 5 MG CAPSULE PO SCH (20:50)
[2018-12-23] MEDS: OXYBUTYNIN XL 5 MG TABSR PO SCH (20:50)
[2018-12-24] MEDS: BLOOD SUGAR DIAGNOSTIC 1 EACH STRIP VI SCH ×4 (05:01→21:04)
[2018-12-24] MEDS: AZTREONAM 0.5 G in IV NORMAL SALINE 50 ML IV SCH ×2 (05:01→13:29)
[2018-12-24 05:38] VITALS: BP 130/65
[2018-12-24 06:43] LABS: BASOPHILS % (AUTO) 0.4 % (0.0-2.0); EOSINOPHILS # (AUTO) 1.2 K/uL (0.0-0.7); EOSINOPHILS % (AUTO) 13.9 % (0.0-7.0); HEMATOCRIT 31.9 % (36.7-47.1); HEMOGLOBIN 11.1 g/dL (12.5-16.3); LYMPHOCYTES # (AUTO) 1.2 K/uL (20.0-40.0); LYMPHOCYTES % (AUTO) 14.3 % (20.5-51.5); MEAN CORPUSCULAR HGB CONC 35 g/dL (32.5-36.3); MONOCYTES # (AUTO) 0.9 K/uL (2.0-10.0); MONOCYTES % (AUTO) 10.5 % (0.0-11.0); NEUTROPHILS # (AUTO) 5.1 K/uL (1.8-8.9); NEUTROPHILS % (AUTO) 60.9 % (38.5-71.5); PLATELET COUNT (AUTO) 179 K/uL (152-348); RED BLOOD CELL COUNT(AUTO) 3.84 MIL/uL (4.06-5.63); WHITE BLOOD COUNT (AUTO) 8.4 K/uL (3.6-10.2)
[2018-12-24 06:52] LABS: ALANINE AMINOTRANSFERASE 42 U/L (16-63); ALKALINE PHOSPHATASE 37 U/L (50-136); ASPARTATE AMINOTRANSFERASE 34 U/L (15-37); BILIRUBIN,TOTAL 0.7 mg/dL (0.2-1.0); CARBON DIOXIDE 25 mmol/L (21-32); CHLORIDE 99 mmol/L (98-107); CREATININE 2.4 mg/dL (0.6-1.3); GLUCOSE 99 mg/dL (74-106); MAGNESIUM 2.3 mg/dL (1.8-2.4); PHOSPHOROUS 3.7 mg/dL (2.5-4.9); TOTAL PROTEIN, SERUM 6.7 g/dL (6.4-8.2); UREA NITROGEN, BLOOD 50 mg/dL (7-18)
[2018-12-24 08:21] VITALS: BP 119/58
[2018-12-24] MEDS: FUROSEMIDE 40 MG TABLET PO SCH (08:23)
[2018-12-24] MEDS: FAMOTIDINE 20 MG TABLET PO SCH (08:23)
[2018-12-24] MEDS: AMLODIPINE 10 MG TABLET PO SCH (08:23)
[2018-12-24] MEDS: CARVEDILOL 12.5 MG TABLET PO SCH ×2 (08:23→17:08)
[2018-12-24] MEDS: CLOPIDOGREL 75 MG TABLET PO SCH (08:24)
[2018-12-24] MEDS: CLONIDINE HCL 0.2 MG TABLET PO SCH ×2 (08:24→20:58)
[2018-12-24] MEDS: LINEZOLID 600 MG TABLET PO SCH ×2 (08:25→20:57)
[2018-12-24] MEDS: INSULIN GLARGINE,HUM 300 UNITS/3 ML CARTRIDGE SQ SCH ×2 (08:30→21:06)
--- NOTE | 2018-12-24 10:35 | NUR ---
Received pt. in bed, comfortable. A/OX4 verbally responsive and able to make his needs known. All due medications given and tolerated well. On PO ABX for ble cellulitis, no ASE noted. No s/sx of hypo/hyperglycemia. PIV on LAC remain patent and intact. All pt. needs attended and met promptly. Safety measures in place. Call light and all frequently used items within pt. reach.
[2018-12-24] MEDS ORDERED: FUROSEMIDE 40 MG/4 ML VIAL IV ONE (11:00)
[2018-12-24] MEDS: INSULIN REGULAR, HUMAN 300 UNIT/3 ML VIAL SQ PRN ×3 (11:18→21:08)
[2018-12-24 11:40] VITALS: BP 134/60
[2018-12-24 15:26] VITALS: BP 154/70
--- NOTE | 2018-12-24 18:10 | NUR ---
End of shift note: No significant change during this shift. All needs attended and met promptly. Safety measures in placed. Bed in low position, brake on, side rails up x2 as an enabler. Call light and all frequently used items within pt. reach. Will endorse to next shift accordingly
[2018-12-24] MEDS: LEVOFLOXACIN 250 MG TABLET PO SCH (19:57)
[2018-12-24 20:00] VITALS: BP 133/52
--- NOTE | 2018-12-24 20:00 | NUR ---
RECEIVED PATIENT AWAKE AND SITTING UP IN CHAIR. NO COMPLAINTS OF PAIN OR DISCOMFORT AT THIS TIME. ALL SAFETY AND FALL PREVENTION MEASURES IN PLACE. VS ARE WNL. CALL LIGHT AND PERSONAL ITEMS WITHIN REACH AT ALL TIMES. WILL CONTINUE TO MONITOR.
[2018-12-24] MEDS: TERAZOSIN 5 MG CAPSULE PO SCH (20:57)
[2018-12-24] MEDS: CULTURELLE CAPSULE PO SCH (20:57)
[2018-12-24] MEDS: OXYBUTYNIN XL 5 MG TABSR PO SCH (20:58)
[2018-12-24] MEDS: ATORVASTATIN 10 MG TABLET PO SCH (20:58)
[2018-12-24] MEDS: AZTREONAM 1 G in IV NORMAL SALINE 50 ML IV SCH (21:21)
[2018-12-25 05:07] VITALS: BP 122/53
[2018-12-25] MEDS: AZTREONAM 1 G in IV NORMAL SALINE 50 ML IV SCH ×2 (05:24→14:07)
[2018-12-25] MEDS: BLOOD SUGAR DIAGNOSTIC 1 EACH STRIP VI SCH ×2 (05:33→10:51)
--- NOTE | 2018-12-25 05:33 | NUR ---
ACCUCHECK RESULTS ARE 62. NOTIFIED CHARGE GAVE PATIENT 8 OZ ORANGE JUICE. WILL RECHECK AFTER 30 MINUTES.
--- NOTE | 2018-12-25 06:15 | NUR ---
ACCUCHECK BLOOD SURGAR NOW 83. ADVISED CHARGE NURSE. NO FURTHER ACTION NEEDED.
--- NOTE | 2018-12-25 06:49 | NUR ---
PATIENT SITTING UP IN CHAIR AWAKE AND RESTING COMFORTABLY. PATIENT EXPRESSED HIS WISH TO BE ABLE TO LEAVE BY SATURDAY BECAUSE OF MAJOR CONFUCIAN[employer]OLID[employer]. I ADVISED PATIENT I WOULD NOTIFY AM NURSE REGARDING HIS WISHES. VS ARE WNL AND PATIENT IS STABLE. SAFETY AND FALL PRECAUTION MEASURES REMAIN IN PLACE. CALL LIGHT AND PERSONAL ITEMS ARE WITHIN REACH AT ALL TIMES.
[2018-12-25] MEDS ORDERED: FUROSEMIDE 40 MG/4 ML VIAL IV ONE (07:00)
--- NOTE | 2018-12-25 07:10 | NUR ---
PATIENT SITTING IN CHAIR, AOX4. DENIES PAIN OR SOB AT THIS TIME. LT. AC IV FLUSHED AND LEAKING. WILL PLACE A NEW IV AND HL. BLE REDNESS NOTED. SAFETY AND FALL PREVENTION IN PLACE. CALL LIGHT IN REACH. BED IN LOW POSITION. WILL CONTINUE TO MONITOR.
[2018-12-25] MEDS: CLONIDINE HCL 0.2 MG TABLET PO SCH (08:39)
[2018-12-25] MEDS: LINEZOLID 600 MG TABLET PO SCH (08:39)
[2018-12-25] MEDS: AMLODIPINE 10 MG TABLET PO SCH (08:39)
[2018-12-25] MEDS: CULTURELLE CAPSULE PO SCH (08:39)
[2018-12-25] MEDS: FAMOTIDINE 20 MG TABLET PO SCH (08:39)
[2018-12-25] MEDS: CLOPIDOGREL 75 MG TABLET PO SCH (08:39)
[2018-12-25] MEDS: CARVEDILOL 12.5 MG TABLET PO SCH (08:40)
[2018-12-25] MEDS: INSULIN GLARGINE,HUM 300 UNITS/3 ML CARTRIDGE SQ SCH (10:50)
[2018-12-25 11:00] VITALS: BP 105/39
[2018-12-25] MEDS ORDERED: LACT1CAP57 PO (11:53)
[2018-12-25] MEDS ORDERED: Levofloxacin PO (11:53)
[2018-12-25] MEDS ORDERED: LINE600T PO (11:53)
--- NOTE | 2018-12-25 15:50 | NUR ---
PATIENT DISCHARGED TO HOME. ([facility]) WILL DRIVE HIM HOME. PATIENT IN STABLE CONDITION. DISCHARGE INSTRUCTIONS AND THE RX GIVEN TO PATIENT. BELONGINGS LIST COMPLETED WITH PATIENT AND PATIENT LEFT WITH BELONGINGS VIA WC. VITAL SIGNS STABLE UPON DC. BP 105/39, HR 63, TEMP 97.6, O2SATS ON RA 95%.
== END 2018-12-25 15:50 | disposition home health service (06) | DRG 602 ==
LOC: ER 20:07 → TELE3 21:51 → MEDSURG3 12-22 11:23
PROVIDERS: ADMIT Registered Nurse; ATTEND Internal Medicine
DX: L03.115 Cellulitis of right lower limb (principal); I21.A1 Myocardial infarction type 2; I50.33 Acute on chronic diastolic (congestive) heart failure; L97.919 Non-pressure chronic ulcer of unspecified part of right lower leg with unspecified severity; I13.0 Hypertensive heart and chronic kidney disease with heart failure and stage 1 through stage 4 chronic kidney disease, or unspecified chronic kidney disease; N18.4 Chronic kidney disease, stage 4 (severe); E87.1 Hypo-osmolality and hyponatremia; Z68.42 Body mass index [BMI] 45.0-49.9, adult; L97.819 Non-pressure chronic ulcer of other part of right lower leg with unspecified severity; N17.9 Acute kidney failure, unspecified; L03.116 Cellulitis of left lower limb; I87.2 Venous insufficiency (chronic) (peripheral); E11.22 Type 2 diabetes mellitus with diabetic chronic kidney disease; D63.8 Anemia in other chronic diseases classified elsewhere; E78.5 Hyperlipidemia, unspecified; E66.01 Morbid (severe) obesity due to excess calories; N40.1 Benign prostatic hyperplasia with lower urinary tract symptoms; Z79.4 Long term (current) use of insulin; Z79.02 Long term (current) use of antithrombotics/antiplatelets; Z86.73 Personal history of transient ischemic attack (TIA), and cerebral infarction without residual deficits; Z87.440 Personal history of urinary (tract) infections; I87.8 Other specified disorders of veins; Z79.899 Other long term (current) drug therapy
CPT/HCPCS: 36415; 70030-TC; 71045; 76770; 83605; 83690; 83735; 84100; 84443; 84520; 85025; 85730; 87040; 87086; 93307; 94664; A4663; A9150; G0378; J1815; J1940; J3370; J3490; J7030; J7050; J7060